=== PATIENT | female | born 2000 | race Caucasian/White ===

== ENCOUNTER 2020-05-26 07:35 | Emergency (ER) | payer MEDICAID ==
[~2020-05-26] VITALS: Ht 160 cm; Wt 73.9 kg
[2020-05-26 07:50] VITALS: BP 134/58
--- NOTE | 2020-05-26 08:00 | NUR ---
PT AMB TO BED1
--- NOTE | 2020-05-26 08:02 | NUR ---
19 YO FEMALE 30 WKS CO NASAL CONGESTION, COUGH, SORE THROAT AND BODY ACHES FOR ABOUT 2D. PT STATES THAT SHE HAS GENERALIZED BODY PAIN THAT IS 8/10. NO N/V/D AND NO CHILLS. PT IS A/O X4. NO PHM AND NO RX
--- NOTE | 2020-05-26 08:05 | NUR ---
Patient being evaluated by DR BEJARANO at bedside.
--- NOTE | 2020-05-26 08:19 | NUR ---
COVID SWAB COMPLETED AND WALKED TO LAB.
[2020-05-26 08:30] VITALS: BP 134/58
--- NOTE | 2020-05-26 08:30 | NUR ---
Patient discharged with v/s stable. Written and verbal after care instructions given and explained. Patient verbalized understanding. Ambulatory with steady gait. All questions addressed prior to discharge. Advised to follow up with PMD.
--- NOTE | 2020-05-28 09:44 | NUR ---
Negative covid results received from lab-- copy will be sent to infection prevention.
== END 2020-05-26 08:30 | disposition home or self-care (01) ==
LOC: MED 07:35
DX: O99.513 Diseases of the respiratory system complicating pregnancy, third trimester (principal); Z20.828 Contact with and (suspected) exposure to other viral communicable diseases
CPT/HCPCS: 99283; U0003